=== PATIENT | female | born 1980 | race Caucasian/White ===

== ENCOUNTER → 2023-12-05 | Outpatient (CLI) | payer OTHER | LOC: M WHC 13:44 | PROVIDERS: ATTEND Physician Assistant Medical | DX: N60.42 Mammary duct ectasia of left breast (principal); R92.322 Mammographic fibroglandular density, left breast; R92.8 Other abnormal and inconclusive findings on diagnostic imaging of breast ==

== ENCOUNTER → 2023-12-22 | Outpatient (CLI) | payer OTHER ==
[2023-12-22 09:47] VITALS: TEMP 98.5; O2SAT 98
[2023-12-22 10:55] VITALS: BP 142/94
== END ==
LOC: M WHCPRO 09:14
PROVIDERS: ATTEND Physician Assistant Medical
DX: R92.2 Inconclusive mammogram (principal); N63.21 Unspecified lump in the left breast, upper outer quadrant